=== PATIENT | male | born 1945 | race Caucasian/White ===

== ENCOUNTER 2021-03-03 15:40 | Inpatient (IN) | payer MEDICARE, BC ==
[2021-03-03] MEDS ORDERED: Morphine 4 MG/ML VIAL ONE ×2 (16:09→18:45)
[2021-03-03] MEDS ORDERED: Ondansetron PF 4 MG/2 ML Vial ONE (16:09)
[2021-03-03] MEDS ORDERED: Iopamidol-370 76% 500 ML 1 ML ONE (16:26)
[2021-03-03] MEDS ORDERED: Iopamidol 370 76% 50 ML VIAL FS ONE (16:26)
[2021-03-03 16:50] LABS: #Eosinphils 0.1 thou/uL (0.0-0.7); #Lymphocytes 1.8 thou/uL (1.20-3.40); #Monocytes 1.4 thou/uL (0.11-0.59); %Basophils 0.4 % (0.0-1.0); %Eosinophils 0.5 % (0.0-10.0); %Lymphocytes 15.9 % (21.0-51.0); %Neutrophils 71.2 % (42.0-75.0); Hemoglobin 13.4 g/dL (14.0-18.0); Mean Corpuscular Hemoglobin 33.4 pg (27.0-31.0); Mean Corpuscular Volume 98.1 fL (78.0-98.0); Mean Platelet Volume 10.7 fL (7.4-10.4); Platelet Count 228 thou/uL (130-400); Red Blood Cell (RBC) Count 4.01 mill/uL (4.70-6.10); White Blood Cell (WBC) Count 11.2 thou/uL (4.8-10.8)
[2021-03-03 17:08] LABS: ALT (SGPT) 202 U/L (8-55); AST (SGOT) 184 U/L (5-34); Albumin 3.4 g/dL (3.4-4.8); Alkaline Phosphatase 1021 U/L (40-110); Anion Gap 14 mmol/L (10-20); BUN (Urea Nitrogen) 11 mg/dL (8.4-25.7); Bilirubin, Total 18.8 mg/dL (0.2-1.2); CK (CPK) 21 U/L (30-200); Calc. Creatinine Clearance 0 mL/min (70-130); Calcium 9.2 mg/dL (7.8-10.44); Carbon Dioxide 23 mmol/L (23-31); Chloride 96 mmol/L (98-107); Globulin 3.2 g/dL (2.4-3.5); Glucose 100 mg/dL (83-110); Lipase 58 U/L (8-78); Magnesium 1.7 mg/dL (1.6-2.6); Potassium 3.7 mmol/L (3.5-5.1); Protein, Total 6.6 g/dL (5.8-8.1); Sodium 129 mmol/L (136-145)
[2021-03-03 17:09] LABS: INR-International Normal Ratio 1.1; PTT 26.8 sec (22.9-36.1); Prothrombin Time 14.4 sec (12.0-14.7)
[2021-03-03 17:46] LABS: Bilirubin 2+ (Negative); Blood, Urine Negative (Negative); Clarity Clear (Clear); Glucose, Urine (Dipstick) Normal (Negative); Ketone, Urine Negative (Negative); Leukocyte Negative Leu/uL (Negative); Nitrite Negative (Negative); Protein, Urine (Dipstick) Negative (Neg-Trace); Specific Gravity, Urine 1.008 (1.002-1.036); Urobilinogen 6 mg/dL (Less than 2); pH, Urine 6.5 (5.0-9.0)
[2021-03-03] MEDS ORDERED: Fentanyl 100 MCG/2 ML VIAL SLOW IVP PRN (18:29)
[2021-03-03] MEDS ORDERED: Calcium Carbonate 500 MG ChewTAB PO PRN (19:23)
[2021-03-03] MEDS ORDERED: Ondansetron ODT 4 MG TAB PO PRN (19:23)
[2021-03-03] MEDS ORDERED: Ondansetron PF 4 MG/2 ML Vial IVP PRN (19:23)
[2021-03-03] MEDS ORDERED: Senokot S 8.6-50 MG TAB PO PRN (19:23)
[2021-03-03] MEDS ORDERED: Ipratropium Bromide 2.5 ml Neb NEB PRN (19:26)
[2021-03-03] MEDS ORDERED: Melatonin 3 MG TAB PO PRN (19:28)
[2021-03-03] MEDS ORDERED: Mometasone 200 MCG/Formoterol 5 MCG 120 PUFF INHALER INH SCH (19:30)
[2021-03-03] MEDS ORDERED: Piperacillin/Tazobactam 3.375 GM in Sodium Chloride 0.9% 100 ML IVPB SCH (19:30)
[2021-03-03] MEDS ORDERED: Nicotine 14 MG PATCH TD PRN (19:38)
[2021-03-03] MEDS: Sodium Chloride 0.9% 1,000 ML IV SCH (20:37)
[2021-03-03] MEDS: Nystatin 500,000 UNITS/5 ML UDCUP SSW SCH (20:41)
[2021-03-03] MEDS: Gabapentin 300 MG CAP PO SCH (20:41)
[2021-03-03 20:53] VITALS: BMI 22.1
[2021-03-03] MEDS ORDERED: Magnesium 2 GM/50 ML 2 GM in Premix Bag 1 BAG IVPB SCH (21:00)
[2021-03-03] MEDS ORDERED: Pantoprazole 40 MG VIAL IVP SCH (21:00)
[2021-03-03] MEDS: Morphine 4 MG/ML VIAL SLOW IVP PRN (23:39)
[2021-03-04] MEDS: Morphine 4 MG/ML VIAL SLOW IVP PRN ×2 (04:39→08:16)
[2021-03-04] MEDS: Sodium Chloride 0.9% 1,000 ML IV SCH ×3 (04:39→19:15)
[2021-03-04] MEDS: Mometasone 200 MCG/Formoterol 5 MCG 120 PUFF INHALER INH SCH ×2 (06:57→19:37)
[2021-03-04 07:04] LABS: #Eosinphils 0.1 thou/uL (0.0-0.7); #Lymphocytes 0.8 thou/uL (1.20-3.40); #Neutrophils 6.6 thou/uL (1.40-6.50); %Basophils 0.3 % (0.0-1.0); %Eosinophils 1.5 % (0.0-10.0); %Lymphocytes 9.8 % (21.0-51.0); %Monocytes 11.6 % (0.0-10.0); %Neutrophils 76.8 % (42.0-75.0); Hemoglobin 11.9 g/dL (14.0-18.0); Mean Corpuscular HGB CONC 34.1 g/dL (32.0-36.0); Mean Corpuscular Hemoglobin 33.7 pg (27.0-31.0); Mean Corpuscular Volume 98.6 fL (78.0-98.0); Mean Platelet Volume 10.6 fL (7.4-10.4); Platelet Count 200 thou/uL (130-400); RBC Distribution Width 12.8 % (11.5-14.5); Red Blood Cell (RBC) Count 3.53 mill/uL (4.70-6.10); White Blood Cell (WBC) Count 8.6 thou/uL (4.8-10.8)
[2021-03-04 07:26] LABS: ALT (SGPT) 149 U/L (8-55); AST (SGOT) 124 U/L (5-34); Alkaline Phosphatase 826 U/L (40-110); Anion Gap 9 mmol/L (10-20); BUN (Urea Nitrogen) 7 mg/dL (8.4-25.7); BUN/Creatinine Ratio 11.29; Bilirubin, Total 16.7 mg/dL (0.2-1.2); Calc. Creatinine Clearance 110 mL/min (70-130); Calcium 8.5 mg/dL (7.8-10.44); Carbon Dioxide 28 mmol/L (23-31); Chloride 101 mmol/L (98-107); Glucose 101 mg/dL (83-110); Phosphorus 2.8 mg/dL (2.3-4.7); Potassium 3.9 mmol/L (3.5-5.1); Protein, Total 5.6 g/dL (5.8-8.1); Sodium 134 mmol/L (136-145)
[2021-03-04 08:11] LABS: Bilirubin, Direct Greater than 10.0 mg/dL (0.1-0.3)
[2021-03-04] MEDS: Nystatin 500,000 UNITS/5 ML UDCUP SSW SCH ×4 (08:15→18:21)
[2021-03-04] MEDS ORDERED: Fluticasone Propionate Nasal Spray 16 gm Bottle NASAL SCH (09:00)
[2021-03-04] MEDS: Gabapentin 300 MG CAP PO SCH (11:06)
[2021-03-04 12:00] LABS: SARS-CoV-2 PCR by NAA Not Detected (NotDetected)
[2021-03-04] MEDS ORDERED: Morphine 4 MG/ML VIAL SLOW IVP PRN (12:59)
[2021-03-04 17:40] VITALS: BP 128/69; TEMP 98.3
== END 2021-03-04 19:48 | disposition hospice, home (50) | DRG 435 ==
LOC: ERS 15:40 → T4-B 17:21
PROVIDERS: ADMIT Internal Medicine; ATTEND Internal Medicine
DX: C78.7 Secondary malignant neoplasm of liver and intrahepatic bile duct (principal); K83.1 Obstruction of bile duct; C25.9 Malignant neoplasm of pancreas, unspecified; B37.0 Candidal stomatitis; E87.1 Hypo-osmolality and hyponatremia; J41.0 Simple chronic bronchitis; C78.89 Secondary malignant neoplasm of other digestive organs; K21.9 Gastro-esophageal reflux disease without esophagitis; Z66 Do not resuscitate; Z51.5 Encounter for palliative care; I10 Essential (primary) hypertension; F17.210 Nicotine dependence, cigarettes, uncomplicated; K59.00 Constipation, unspecified; E86.0 Dehydration; J30.2 Other seasonal allergic rhinitis; M19.90 Unspecified osteoarthritis, unspecified site; Z85.828 Personal history of other malignant neoplasm of skin; Z88.8 Allergy status to other drugs, medicaments and biological substances; Z88.5 Allergy status to narcotic agent
CPT/HCPCS: 36415; 71045; 74177; 80053; 80069; 80076; 81003; 82550; 83605; 83690; 83735; 83930; 83935; 84443; 85025; 85610; 85730; 93005; 96374; 96375; 96376; C9113; J2270; J2405; J3475; Q9967; U0003; U0005